=== PATIENT | female | born 1945 | race Caucasian/White ===

== ENCOUNTER 2016-11-23 09:29 | Emergency (ER) | payer MEDICARE ==
--- NOTE | 2016-11-23 10:31 | ER PHYSICIAN DOCUMENTATION ---
Physician Documentation [facility] Name:Yajaira Roberson Age:71 yrs Sex:Female :1945 Arrival Date:11/23/2016 Time:09:29 Bed4 Private MD:Kinjal Simpson ED, John Disposition: 11/23/16 10:23 Discharged to Home/Self Care. Impression: Head Contusion, Unspecified Part of Head, Chest Contusion. - Condition is Good. - Discharge Instructions: CHEST CONTUSION - CHEST WALL CONTUSION. - Prescriptions for Tramadol 50 mg Oral Tablet - take 1 tablet by ORAL route every 8 hours as needed; 12 tablet. - Medical Reconciliation form form. - Follow up: Kinjal Simpson MD; When: As needed; Reason: Continuance of care. - Problem is new. - Symptoms have improved. HPI: 11/23 10:17 This 71 yrs old Female presents to ER via Private Vehicle with complaints of jm Fall Injury. 10:17 Details of fall: The patient fell from an upright position, while walking. Onset: The jm symptom(s)/episode began/occurred just prior to arrival. Associated injuries: The patient sustained injury to the head, contusion, upper back injury, pain with movement. Associated signs and symptoms: Pertinent negatives: headache, nausea, numbness, shortness of breath, tingling, vomiting, weakness, Loss of consciousness: the patient experienced no loss of consciousness. Severity of symptoms: in the emergency department the symptoms are unchanged. At 5:30 pt woke up to go the bathroom and tripped and fell. She hit her head on the nightstand and hit her back on the ground, so she thinks. She saws it was a blur. She didn't think much of it. Pt is on warfarin. Pt has pain w inspiration. . Historical: - Allergies: Macrodantin; IODINEIODINE CONTAINING; Iodinated Contrast Media - IV Dye; Betadine; - Home Meds: 1. oxybutynin chloride 10 mg oral tr24 1 tab once daily 2. ketoconazole 2 % topical crea 2 times per day 3. metoprolol succinate 25 mg oral Tb24 2 tabs once daily 4. fluoxetine 20 mg oral cap 1 cap once daily 5. levothyroxine 50 mcg oral cap 1 cap once daily for Hypothyroidism 6. Mirapex 0.25 mg oral tab 1 tab Daily for Restless Legs Syndrome 7. reclast 8. Fiorinal 50-325-40 mg oral cap 2 caps every 6 hours as needed for Migraine 9. Wellbutrin XL 300 mg oral Tb24 1 tab once daily 10. biotin 1 mg oral cap 1 cap daily 11. Coumadin 5 mg oral tab 1 tab once daily - PMHx: Breast Fibroadenoma; Paroxysmal Atrial Fibrillation; dermatitis; Hyperlipidemia; Hypothyroidism; Restless leg Syndrome; Vertebral Compression Fracture; Obstructive Sleep Apnea; DEPRESSION; Hypoxemia; CATARACTS; MIGRAINES; Microcytosis; - PSHx: Heel Surgery; Wrist surgery; - Tetanus: < 10 years. - Ebola Screening: : Patient negative for fever greater than or equal to 101.5 degrees Fahrenheit, and additional compatible Ebola Virus Disease symptoms. Patient denies exposure to infectious person. Patient denies travel to an Ebola-affected area in the 21 days before illness onset. . - Immunization history: Pneumococcal vaccine is up to date, Flu Vaccine < 1 year. - Social history: Smoking status: Patient states was never smoker of tobacco. ROS: 10:18 Constitutional: Negative for fatigue, fever, malaise. jm 10:18 Eyes: Negative for blurry vision, visual disturbance. 10:18 ENT: Negative for injury or acute deformity. 10:18 Neck: Negative for injury or acute deformity. 10:18 Cardiovascular: Positive for chest pain, Negative for palpitations. 10:18 Respiratory: Positive for pleurisy, Negative for shortness of breath. 10:18 Abdomen/GI: Negative for abdominal pain, nausea, vomiting. 10:18 MS/extremity: Negative for injury or acute deformity, paresthesias. 10:18 Neuro: Negative for dizziness, gait disturbance, headache, numbness, tingling, weakness. Exam: 10:19 Constitutional: The patient appears alert, awake, comfortable. jm 10:19 Head/face: Exam is negative for obvious evidence of injury or deformity, contusion, Basilar skull fracture findings: the patient does not have obvious signs of a basilar skull fracture. 10:19 Eyes: Pupils: equal, round, and reactive to light and accomodation, Extraocular movements: intact throughout. 10:19 ENT: Nose: is normal, Mouth: is normal. 10:19 Neck: External neck: is normal, C-spine: appears grossly normal. 10:19 Chest/axilla: Inspection: normal, ecchymosis, is not appreciated, Palpation: tenderness, that is mild, of the left lateral posterior chest. 10:19 Cardiovascular: Rate: normal, Rhythm: regular. 10:19 Respiratory: the patient does not display signs of respiratory distress, Respirations: normal. 10:19 Neuro: Orientation: is normal, Mentation: is normal, Memory: is normal, Cranial nerves: CN II- XII are normal as tested, Cerebellar function: normal finger to nose testing, Motor: strength is 5/5 in all extremities. Vital Signs: 09:45 BP 120 / 80; Pulse 74; Resp 16; Temp 97.7(O); Pulse Ox 92% on R/A; Weight 67.13 kg; lp Height 5 ft. 8 in. (172.72 cm); Pain 2/10; 10:25 BP 124 / 84; Pulse 69; Resp 16; Pulse Ox 96% on R/A; lp 09:45 Body Mass Index 22.50 (67.13 kg, 172.72 cm) lp MDM: 09:51 Patient medically screened. 10:20 Differential diagnosis: closed head injury, contusion, fracture. Data reviewed: vital jm signs, nurses notes, old medical records, radiologic studies, and as a result, I will discharge patient. Test interpretation: by ED physician or midlevel provider: plain radiologic studies. Counseling: I had a detailed discussion with the patient and/or guardian regarding: the historical points, exam findings, and any diagnostic results supporting the discharge/admit diagnosis, lab results, radiology results, the need for outpatient follow up, with the patient's primary care provider. ED course: No fx noted on xray. Pt DC'd home w institutions to use ice and tylenol. Dispensed Medications: No medications were administered Signatures: Nancy Burton RN RN lp Alvin Goldberg MD MD jm
--- NOTE | 2016-11-23 10:31 | ER NURSING DOCUMENTATION ---
Nurse's Notes [facility] Name:Yajaira Roberson Age:71 yrs Sex:Female :1945 Arrival Date:11/23/2016 Time:09:29 Bed4 Private MD:Kinjal Simpson Diagnosis:Head Contusion, Unspecified Part of Head;Chest Contusion Presentation: 11/23 09:36 Presenting complaint: Patient states: Patient fell at home. No loss of consciousness. lp Transition of care: Home. 09:36 Method Of Arrival: Private Vehicle lp 09:36 Acuity: KOFFI 3 lp 09:46 Notified ED Physician of Yusuf Osborn notified. lp Triage Assessment: 09:54 General: Appears in no apparent distress, Behavior is appropriate for age. Pain: lp Complains of pain in left subscapular area Pain does not radiate. Pain currently is 2 out of 10 on a pain scale. Quality of pain is described as aching, tender, Pain began 2 hours ago Is continuous Alleviated by rest, Aggravated by repositioning. EENT: No deficits noted. Neuro: Level of Consciousness is awake, alert, Oriented to person, place, time, event, [employer] are equal bilaterally Moves all extremities. Gait is steady, Speech is normal, Facial symmetry appears normal. Cardiovascular: Heart tones S1 S2 Pulses are all present. Rhythm is sinus rhythm with unifocal PVCs. Respiratory: Breath sounds are clear bilaterally. GI: No deficits noted. : No deficits noted. Derm: No deficits noted. Musculoskeletal: Tenderness present in left subscapular area and thoracic area Reports pain in left subscapular area and thoracic area. Injury Description: Ground level fall. Historical: - Allergies: Macrodantin; IODINEIODINE CONTAINING; Iodinated Contrast Media - IV Dye; Betadine; - Home Meds: 1. oxybutynin chloride 10 mg oral tr24 1 tab once daily 2. ketoconazole 2 % topical crea 2 times per day 3. metoprolol succinate 25 mg oral Tb24 2 tabs once daily 4. fluoxetine 20 mg oral cap 1 cap once daily 5. levothyroxine 50 mcg oral cap 1 cap once daily for Hypothyroidism 6. Mirapex 0.25 mg oral tab 1 tab Daily for Restless Legs Syndrome 7. reclast 8. Fiorinal 50-325-40 mg oral cap 2 caps every 6 hours as needed for Migraine 9. Wellbutrin XL 300 mg oral Tb24 1 tab once daily 10. biotin 1 mg oral cap 1 cap daily 11. Coumadin 5 mg oral tab 1 tab once daily - PMHx: Breast Fibroadenoma; Paroxysmal Atrial Fibrillation; dermatitis; Hyperlipidemia; Hypothyroidism; Restless leg Syndrome; Vertebral Compression Fracture; Obstructive Sleep Apnea; DEPRESSION; Hypoxemia; CATARACTS; MIGRAINES; Microcytosis; - PSHx: Heel Surgery; Wrist surgery; - Tetanus: < 10 years. - Ebola Screening: : Patient negative for fever greater than or equal to 101.5 degrees Fahrenheit, and additional compatible Ebola Virus Disease symptoms. Patient denies exposure to infectious person. Patient denies travel to an Ebola-affected area in the 21 days before illness onset. . - Immunization history: Pneumococcal vaccine is up to date, Flu Vaccine < 1 year. - Social history: Smoking status: Patient states was never smoker of tobacco. Screenin:58 Infectious Disease Risk None. Abuse screen: Denies threats or abuse. Denies injuries lp from another. Nutritional screening: No deficits noted. Assessment: 09:58 See Triage Assessment done by same RN. lp Vital Signs: 09:45 BP 120 / 80; Pulse 74; Resp 16; Temp 97.7(O); Pulse Ox 92% on R/A; Weight 67.13 kg; lp Height 5 ft. 8 in. (172.72 cm); Pain 2/10; 10:25 BP 124 / 84; Pulse 69; Resp 16; Pulse Ox 96% on R/A; lp 09:45 Body Mass Index 22.50 (67.13 kg, 172.72 cm) lp ED Course: 09:29 Patient arrived in ED. ds 09:30 Kinjal Simpson MD is Private Physician. ds 09:36 Nancy Burton, CAESAR is Primary Nurse. lp 09:37 Triage completed. lp 09:51 Alvin Goldberg MD is Attending Physician. jm 09:[address] Goldberg notified. lp 09:58 Valuables Remains with patient Patient has correct armband on for positive lp identification. Placed in gown. Bed in low position. Call light in reach. 10:06 Patient moved to radiology. juan c 10:20 Patient moved back from radiology. juan c 10:23 Kinjal Simpson MD is Referral Physician. jm Administered Medications: No medications were administered Outcome: 10:23 Discharge ordered by . luna 10:29 Discharged to home ambulatory. lp 10:29 Condition: stable 10:29 Instructed on discharge instructions, follow up and referral plans. medication usage. 10:30 Patient left the ED. lp 11/24 10:24 Discharge F/U Call: Spoke with: patient. Are you having any pain? yes. Pain level is lp How are you managing your pain? Patient is taking medication: Ibuprofen/ Tramadol Overall Care on a scale of 1-10 with 10 being the best care, you rate our care as: the rating of 10. Signatures: Nancy Burton RN RN lp ot, Viktoriya, Reg Reg Alvin Winters MD MD jm Abbott, Minda irizarry
--- NOTE | 2016-11-23 12:26 | RADIOLOGY REPORT ---
Views of the chest and left ribs demonstrate the heart, vessels and lungs to be unremarkable. No infiltrate, fluid or pneumothorax is seen. No displaced rib fracture is identified. IMPRESSION: Unremarkable views of the chest and left ribs. No displaced rib fracture is identified. Occult nondisplaced rib fractures are not excluded. If clinically indicated, further evaluation and/or follow-up may be of benefit. MTDD
== END 2016-11-23 10:30 | disposition home or self-care (01) ==
LOC: ER 09:29
DX: S00.83XA Contusion of other part of head, initial encounter (principal); S20.222A Contusion of left back wall of thorax, initial encounter; W01.190A Fall on same level from slipping, tripping and stumbling with subsequent striking against furniture, initial encounter; Y92.013 Bedroom of single-family (private) house as the place of occurrence of the external cause; Y93.01 Activity, walking, marching and hiking; Z79.01 Long term (current) use of anticoagulants; I48.0 Paroxysmal atrial fibrillation; Z79.899 Other long term (current) drug therapy
CPT/HCPCS: 71101; 99283